=== PATIENT | female | born 1975 | race Caucasian/White ===

== ENCOUNTER 2016-11-20 21:31 | Emergency (ER) | payer MEDICAID, OTHER ==
[~2016-11-20] VITALS: Ht 152.4 cm; Wt 75.3 kg
[~2016-11-20 21:31] MED LIST: BACL10TA4 PO; GABA300C PO
[2016-11-20 21:36] VITALS: BP 110/65
[2016-11-21] MEDS: KETOROLAC 60 MG/2 ML VIAL IM ONE (00:03)
[2016-11-21 01:07] VITALS: BP 108/69
== END 2016-11-21 01:10 | disposition home or self-care (01) ==
LOC: MED 21:31
DX: M54.42 Lumbago with sciatica, left side (principal); N39.0 Urinary tract infection, site not specified; Z88.5 Allergy status to narcotic agent; Z88.6 Allergy status to analgesic agent
CPT/HCPCS: 81002; 81025; 96372; 99283; J1885

== ENCOUNTER 2020-03-25 13:11 | Emergency (ER) | payer OTHER ==
[~2020-03-25] VITALS: Ht 152.4 cm; Wt 79.4 kg
--- NOTE | 2020-03-25 13:14 | NUR ---
Patient ambulated to bed 3. RN evaluating patient at bedside.
[2020-03-25 13:15] VITALS: BP 143/83
--- NOTE | 2020-03-25 13:20 | NUR ---
PT C/O LAC ON LEFT GREAT TOE WITH THE WHOLE TOENAIL DETACHED S/P INJURIED BY A SHOPPING CART. MILD ACTIVE BUT CONTROLED BLEEDING NOTICED UPON TRIAGE. REPORTS 10/10 PAIN. NO DEFORMITY, DISCOLORATION, EDEMA, OR ERYTHEMA ON THE LEFT FOOT. REPORTS LAST TDAP WAS GIVEN 5 YEARS AGO. PT DENIES ANY FEVER, CP, SOB, OR COUGH AT THIS TIME; PATIENT STATES PAIN OF 10/10 AT THIS TIME; VSS; PATIENT POSITIONED FOR COMFORT; HOB ELEVATED; BEDRAILS UP X1; BED DOWN. ER MD MADE AWARE OF PT STATUS.
--- NOTE | 2020-03-25 13:25 | NUR ---
Dr. Melara is evaluating the patient at bedside.
[2020-03-25] MEDS: LIDOCAINE MPF 1% 10 MG/ML VIAL INJ ONE (14:05)
[2020-03-25 14:18] VITALS: BP 132/72
== END 2020-03-25 14:19 | disposition home or self-care (01) ==
LOC: MED 13:11
DX: S91.202A Unspecified open wound of left great toe with damage to nail, initial encounter (principal); V09.9XXA Pedestrian injured in unspecified transport accident, initial encounter; Y93.89 Activity, other specified; Y92.89 Other specified places as the place of occurrence of the external cause; Y99.8 Other external cause status
CPT/HCPCS: 11730; 99284; J2001

== ENCOUNTER 2020-09-23 20:15 | Emergency (ER) | payer OTHER ==
[~2020-09-23] VITALS: Ht 152.4 cm; Wt 79.4 kg
[2020-09-23 20:21] VITALS: BP 132/90
[2020-09-23 20:44] VITALS: BP 132/90
== END 2020-09-23 20:44 | disposition home or self-care (01) ==
LOC: MED 20:15
DX: H92.01 Otalgia, right ear (principal); E78.00 Pure hypercholesterolemia, unspecified; Z88.6 Allergy status to analgesic agent; Z88.5 Allergy status to narcotic agent; Z88.8 Allergy status to other drugs, medicaments and biological substances; Z98.890 Other specified postprocedural states; Z79.899 Other long term (current) drug therapy
CPT/HCPCS: 99282

== ENCOUNTER 2021-04-23 01:31 | Emergency (ER) | payer OTHER ==
[~2021-04-23] VITALS: Ht 154.9 cm; Wt 77.1 kg
--- NOTE | 2021-04-23 01:31 | NUR ---
PT JERAMIE ALS. TAKEN TO BED 9
--- NOTE | 2021-04-23 01:45 | NUR ---
46 Y/O FEMALE PT BIBA C/O DIARRHEA. PT STATES, "WE WENT CAMPING LAST N[place] AND ATE SOME PEARS WE PICKED TODAY, AND THEN STARTED TO HAVE SOME DIARRHEA, VERY WATERY STOOLS X 10 TODAY." PT WAS GIVEN 200CC NS AND IV ON THE LT HAND 20G FROM EMS. PT'S VITALS ARE STABLE. NKA PMH: UTI
[2021-04-23] MEDS ORDERED: KETOROLAC 15 MG/ML VIAL IVP ONE (02:05)
[2021-04-23] MEDS ORDERED: DICYCLOMINE HCL LIQUID 20 MG, ALUMINUM HYD/MAG/SIMETHICONE 30 ML, LIDOCAINE VISCOUS 2% ... PO ONE ×3 (02:05)
[2021-04-23] MEDS ORDERED: NACL 0.9% 1,000 ML IV ONE (02:05)
[2021-04-23 02:09] VITALS: BP 140/89
[2021-04-23 02:10] LABS: BASOPHILS % (AUTO) 0.2 % (0.0-2.0); EOSINOPHILS # (AUTO) 0.1 K/uL (0-0.4); EOSINOPHILS % (AUTO) 1.2 % (0.0-4.0); HEMATOCRIT 36.2 % (36-48); HEMOGLOBIN 11.7 g/dL (12.0-16.0); LYMPHOCYTES # (AUTO) 2.4 K/uL (2.5-16.5); LYMPHOCYTES % (AUTO) 24.1 % (20.5-51.1); MEAN CORPUSCULAR HEMOGLOBIN 25 pg (27-31); MEAN CORPUSCULAR HGB CONC 32 g/dL (33-37); MEAN CORPUSCULAR VOLUME 75.9 fL (80-94); MONOCYTES # (AUTO) 0.8 K/uL (0.8-1.0); MONOCYTES % (AUTO) 8.4 % (1.7-9.3); NEUTROPHILS # (AUTO) 6.5 K/uL (1.8-7.7); NEUTROPHILS % (AUTO) 66.1 % (42.2-75.2); PLATELET COUNT (AUTO) 337 K/uL (140-450); RED BLOOD CELL COUNT(AUTO) 4.76 MIL/uL (4.20-5.40); RED CELL DISTRIBUTION WIDTH 22.6 % (11.6-13.7); WHITE BLOOD COUNT (AUTO) 9.9 K/uL (4.8-10.8)
[2021-04-23] MEDS ORDERED: DICYCLOMINE HCL LIQUID 10 MG/5 ML UDC ONE (02:23)
[2021-04-23] MEDS ORDERED: ALUMINUM HYD/MAG/SIMETHICONE 30 ML UDC ONE (02:23)
[2021-04-23 02:30] LABS: ANION GAP 13.9 (8-16); CARBON DIOXIDE 26.7 mmol/L (21-32); CREATININE 0.8 mg/dL (0.6-1.3); POTASSIUM 3.6 mmol/L (3.5-5.1); TOTAL BILIRUBIN 0.3 mg/dL (0.0-1.0)
[2021-04-23 03:46] LABS: BILIRUBIN,URINE NEGATIVE (NEGATIVE); BLOOD, URINE TRACE-L (NEGATIVE); COLOR,URINE YELLOW (YELLOW); LEUKOCYTE ESTERASE ,URINE NEGATIVE (NEGATIVE); NITRITE, URINE NEGATIVE (NEGATIVE); UGLUCOSE NEGATIVE (NEGATIVE)
--- NOTE | 2021-04-23 03:48 | NUR ---
Dr. Quinones examining patient.
[2021-04-23] MEDS ORDERED: NITR100C7 PO (03:51)
[2021-04-23] MEDS ORDERED: SIME80CT27 PO (03:51)
[2021-04-23] MEDS ORDERED: BISM262C53 PO (03:51)
[2021-04-23 03:54] LABS: APPEARANCE,URINE CLEAR (CLEAR)
[2021-04-23 03:57] LABS: RBC,URINE 0-5 /HPF (0-5); WBC,URINE 0-5 /HPF (0-5)
[2021-04-23 03:59] LABS: HYALINE CASTS, URINE 0-2 /LPF (None Seen)
[2021-04-23 04:22] VITALS: BP 140/89
--- NOTE | 2021-04-23 04:22 | NUR ---
Patient discharged with v/s stable. Written and verbal after care instructions given and explained. Patient alert, oriented and verbalized understanding of instructions. Ambulatory with steady gait. All questions addressed prior to discharge. ID band removed. Patient advised to follow up with PMD. Rx of PEPTOBISMOL AND MACROBID given. Patient educated on indication of medication including possible reaction and side effects. Opportunity to ask questions provided and answered.
== END 2021-04-23 04:22 | disposition home or self-care (01) ==
LOC: MED 01:31
DX: N39.0 Urinary tract infection, site not specified (principal); R19.7 Diarrhea, unspecified; R10.84 Generalized abdominal pain; R14.0 Abdominal distension (gaseous); Z88.5 Allergy status to narcotic agent; Z88.6 Allergy status to analgesic agent; Z79.899 Other long term (current) drug therapy
CPT/HCPCS: 36415; 80053; 81001; 83690; 85025; 96361; 96374; 99283; J1885; J7030; 81002

== ENCOUNTER 2021-06-03 05:08 | Emergency (ER) | payer OTHER ==
[~2021-06-03] VITALS: Ht 152.4 cm; Wt 77.1 kg
[~2021-06-03 05:08] MED LIST changes: +BISM262C53 PO; +NITR100C7 PO; +SIME80CT27 PO
[2021-06-03 05:15] VITALS: BP 132/84
[2021-06-03] MEDS ORDERED: ACETAMINOPHEN EXTRA STRENGTH 500 MG TAB PO ONE (05:15)
[2021-06-03] MEDS ORDERED: KETOROLAC 30 MG/ML VIAL IM ONE (05:15)
--- NOTE | 2021-06-03 05:15 | NUR ---
TO BED AMBULATORY
--- NOTE | 2021-06-03 05:25 | NUR ---
RECEIVED IN BED 6 WITH C/O RIGHT KNEE PAIN. DENIES TRAUMA. 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
--- NOTE | 2021-06-03 05:29 | NUR ---
US AT BEDSIDE
--- NOTE | 2021-06-03 05:50 | NUR ---
PORTABLE X-RAY DONE
[2021-06-03 06:00] VITALS: BP 132/84
--- NOTE | 2021-06-03 06:00 | NUR ---
Patient discharged with v/s stable. Written and verbal after care instructions given and explained. Patient verbalized understanding. Ambulatory with steady gait. All questions addressed prior to discharge. Advised to follow up with PMD.
== END 2021-06-03 06:00 | disposition home or self-care (01) ==
LOC: MED 05:08
DX: M25.561 Pain in right knee (principal); Z88.5 Allergy status to narcotic agent; Z88.6 Allergy status to analgesic agent; Z79.899 Other long term (current) drug therapy
CPT/HCPCS: 73562; 93971; 96372; 99284; J1885; Q0092

== ENCOUNTER 2021-06-09 12:31 | Emergency (ER) | payer OTHER ==
[~2021-06-09] VITALS: Ht 152.4 cm; Wt 78.0 kg
[2021-06-09 12:37] VITALS: BP 148/94
--- NOTE | 2021-06-09 12:44 | NUR ---
MARTIN Paris is evaluating patient in triage room
--- NOTE | 2021-06-09 12:49 | NUR ---
Patient ambulated to bed 08 with steady/ even gait
--- NOTE | 2021-06-09 12:49 | NUR ---
46 y/o F BIB self from home c/o left palm pain x 4 days. Patient states 6/10 "hurts/constant," non-radiating pain. Tender to palpation. Pt states inflammation to left palm by 1st digit. Denies loss of sensation, numbness, tingling, injury, recent heavy lifting. Denies medications today. PMH: HLD Meds: Denies A: vicodin, tramadol, hydrocodone Sx: Denies
[2021-06-09] MEDS ORDERED: IBUPROFEN 600 MG TAB PO ONE (12:50)
[2021-06-09] MEDS ORDERED: IBUP-2213 PO (12:58)
--- NOTE | 2021-06-09 13:06 | NUR ---
Thumb spica applied to L arm; patient tolerated well. CMS WNL before and after application. Pt successfully verbalized understanding to adjust straps accordingly for proper circulation.
== END 2021-06-09 13:11 | disposition home or self-care (01) ==
LOC: MED 12:31
DX: M79.642 Pain in left hand (principal); R03.0 Elevated blood-pressure reading, without diagnosis of hypertension; Z79.899 Other long term (current) drug therapy; Z88.5 Allergy status to narcotic agent; Z88.8 Allergy status to other drugs, medicaments and biological substances; Z88.6 Allergy status to analgesic agent
CPT/HCPCS: 99283

== ENCOUNTER 2023-03-16 00:39 | Emergency (ER) | payer OTHER ==
[~2023-03-16] VITALS: Ht 172.7 cm; Wt 78.9 kg
[~2023-03-16 00:39] MED LIST changes: +IBUP-2213 PO
[2023-03-16 00:40] VITALS: BP 145/94; PULSE 66; RESP 16; TEMP 97; O2SAT 99
--- NOTE | 2023-03-16 00:51 | NUR ---
ambulate to lobby
--- NOTE | 2023-03-16 01:05 | NUR ---
to bed 12
[2023-03-16] MEDS ORDERED: KETOROLAC 30 MG/ML VIAL IVP ONE (01:20)
[2023-03-16] MEDS ORDERED: NACL 0.9% 1,000 ML IV ONE (01:20)
[2023-03-16] MEDS ORDERED: cefTRIAXone 1,000 MG VIAL ONE (01:52)
[2023-03-16 01:53] LABS: BASOPHILS % (AUTO) 0.4 % (0.0-2.0); EOSINOPHILS # (AUTO) 0.1 K/uL (0-0.4); EOSINOPHILS % (AUTO) 1.3 % (0.0-4.0); HEMATOCRIT 36.4 % (36-48); HEMOGLOBIN 12.1 g/dL (12.0-16.0); LYMPHOCYTES # (AUTO) 2.7 K/uL (2.5-16.5); LYMPHOCYTES % (AUTO) 27.2 % (20.5-51.1); MEAN CORPUSCULAR HEMOGLOBIN 28 pg (27-31); MEAN CORPUSCULAR HGB CONC 33 g/dL (33-37); MEAN CORPUSCULAR VOLUME 84.6 fL (80-94); MONOCYTES # (AUTO) 0.8 K/uL (0.8-1.0); MONOCYTES % (AUTO) 7.9 % (1.7-9.3); NEUTROPHILS # (AUTO) 6.2 K/uL (1.8-7.7); NEUTROPHILS % (AUTO) 63.2 % (42.2-75.2); PLATELET COUNT (AUTO) 302 K/uL (140-450); RED BLOOD CELL COUNT(AUTO) 4.31 MIL/uL (4.20-5.40); RED CELL DISTRIBUTION WIDTH 14.7 % (11.6-13.7); WHITE BLOOD COUNT (AUTO) 9.9 K/uL (4.8-10.8)
[2023-03-16 02:08] LABS: ANION GAP 12.9 (8-16); CARBON DIOXIDE 28.5 mmol/L (21-32); CREATININE 0.7 mg/dL (0.6-1.3); POTASSIUM 3.4 mmol/L (3.5-5.1); TOTAL BILIRUBIN 0.5 mg/dL (0.0-1.0)
[2023-03-16 02:19] LABS: BILIRUBIN,URINE NEGATIVE (NEGATIVE); BLOOD, URINE 3+ (NEGATIVE); LEUKOCYTE ESTERASE ,URINE 3+ (NEGATIVE); NITRITE, URINE POSITIVE (NEGATIVE); UGLUCOSE NEGATIVE (NEGATIVE)
[2023-03-16 02:30] LABS: APPEARANCE,URINE SLIGHTLY CLOUDY (CLEAR); COLOR,URINE DARK YELLOW (YELLOW)
[2023-03-16 02:31] LABS: RBC,URINE 11-20 (MOD) /HPF (0-5)
[2023-03-16] MEDS ORDERED: CIPR500T4 PO (03:05)
[2023-03-16] MEDS ORDERED: ESOM40EC PO (03:11)
[2023-03-16 03:17] VITALS: BP 145/94; PULSE 66; RESP 16; TEMP 97; O2SAT 99
--- NOTE | 2023-03-16 03:17 | NUR ---
Patient discharged. Written and verbal after care instructions given and explained. Patient alert, oriented and verbalized understanding of instructions. Ambulatory with steady gait. All questions addressed prior to discharge. ID band removed. Patient advised to follow up with PMD. Rx of Ciprofloxacin and Nexium given. Patient educated on indication of medication including possible reaction and side effects. Opportunity to ask questions provided and answered.
== END 2023-03-16 03:17 | disposition home or self-care (01) ==
LOC: MED 00:39
DX: N39.0 Urinary tract infection, site not specified (principal); Z88.5 Allergy status to narcotic agent; Z79.899 Other long term (current) drug therapy
CPT/HCPCS: 36415; 80053; 81001; 85025; 87040; 87086; 96365; 96375; 99284; J0696; J1885; J7030

== ENCOUNTER 2023-03-18 07:00 | Emergency (ER) | payer OTHER ==
[~2023-03-18] VITALS: Ht 152.4 cm; Wt 78.9 kg
[~2023-03-18 07:00] MED LIST changes: +CIPR500T4 PO; +ESOM40EC PO
[2023-03-18 07:06] VITALS: BP 151/80; PULSE 75; RESP 20; TEMP 98.2; O2SAT 98
[2023-03-18] MEDS ORDERED: ACETAMINOPHEN 325 MG TAB PO ONE (07:35)
[2023-03-18] MEDS ORDERED: ACET-10509 PO (07:37)
[2023-03-18] MEDS ORDERED: NAPR-1704 PO (07:37)
--- NOTE | 2023-03-18 07:41 | NUR ---
48 Y/O F PATIENT PRESENTS TO ED WITH VAGINAL BLADDER PAINM NON RADIATING. PT STATES HER SYMPTOMS ARE URGENGENCY AND DRIBBILING. DENIES N/V/D; SKIN IS PINK/WARM/DRY; AAOX4 WITH EVEN AND STEADY GAIT; LUNGS CLEAR BL; HR EVEN AND REGULAR; PT DENIES ANY FEVER, CP, SOB, OR COUGH AT THIS TIME; PATIENT STATES PAIN OF 8/10 AT THIS TIME; VSS; PATIENT POSITIONED FOR COMFORT; HOB ELEVATED; CALL LIGHT WITH IN REACH BEDRAILS UP X2; BED DOWN. ER MD MADE AWARE OF PT STATUS. PMHX NONE ALLERGIES VICODIN TRAMADOL
[2023-03-18 07:47] VITALS: O2SAT 98
--- NOTE | 2023-03-18 07:53 | NUR ---
PT HAS BEEN MEDICATED PER PROVIDERS ORDERS
[2023-03-18 08:01] VITALS: BP 149/88; PULSE 75; RESP 16; TEMP 98.2; O2SAT 77
--- NOTE | 2023-03-18 08:04 | NUR ---
PT STATES SHE IS FEELING BETTER PAIN HAS REDUCED TO 3 AND WILL FOLLOW UP WITH HER PRIMARAY CARE PHYSICAN.
--- NOTE | 2023-03-18 09:01 | NUR ---
The patient's care was reviewed and supervised by JUAN MINOR RN.
[2023-03-18] MEDS ORDERED: NITR100C7 PO (11:23)
== END 2023-03-18 09:01 | disposition home or self-care (01) ==
LOC: MED 07:00
DX: N39.0 Urinary tract infection, site not specified (principal); Z88.5 Allergy status to narcotic agent; Z88.6 Allergy status to analgesic agent; Z88.8 Allergy status to other drugs, medicaments and biological substances; Z79.899 Other long term (current) drug therapy
CPT/HCPCS: 81025; 99282

== ENCOUNTER 2023-06-02 12:30 | Emergency (ER) | payer OTHER ==
[~2023-06-02] VITALS: Ht 152.4 cm; Wt 81.2 kg
[~2023-06-02 12:30] MED LIST changes: +ACET-10509 PO; +NAPR-1704 PO
[2023-06-02 12:49] VITALS: BP 162/80; PULSE 62; RESP 16; TEMP 97.2; O2SAT 100
[2023-06-02] MEDS ORDERED: KETOROLAC 60 MG/2 ML VIAL IM ONE (13:20)
[2023-06-02] MEDS ORDERED: IBUP-2213 PO (13:32)
[2023-06-02 13:46] VITALS: BP 155/78; PULSE 62; RESP 16; TEMP 97.2; O2SAT 100
== END 2023-06-02 13:45 | disposition home or self-care (01) ==
LOC: MED 12:30
DX: R51.9 Headache, unspecified (principal); I10 Essential (primary) hypertension; Z88.8 Allergy status to other drugs, medicaments and biological substances; Z88.5 Allergy status to narcotic agent; Z79.899 Other long term (current) drug therapy
CPT/HCPCS: 96372; 99283; J1885

== ENCOUNTER 2023-08-19 04:10 | Emergency (ER) | payer OTHER ==
[~2023-08-19] VITALS: Ht 152.4 cm; Wt 72.6 kg
[2023-08-19 04:22] VITALS: BP 143/86; PULSE 108; RESP 14; TEMP 99.7; O2SAT 95
[2023-08-19] MEDS ORDERED: NACL 0.9% 1,000 ML IV ONE (04:50)
[2023-08-19] MEDS ORDERED: ONDANSETRON 4 MG/2 ML VIAL IVP ONE (04:50)
[2023-08-19] MEDS ORDERED: KETOROLAC 30 MG/ML VIAL IVP ONE (04:50)
[2023-08-19 05:42] LABS: FLU A ANTIGEN negative (NEGATIVE); FLU B ANTIGEN NEGATIVE (NEGATIVE)
[2023-08-19] MEDS ORDERED: NAPR-54 PO (06:18)
[2023-08-19] MEDS ORDERED: MAG-27 PO (06:18)
[2023-08-19] MEDS ORDERED: ONDA-188 PO (06:18)
[2023-08-19 06:49] VITALS: BP 135/90; PULSE 108; RESP 14; TEMP 99.7; O2SAT 95
== END 2023-08-19 06:49 | disposition home or self-care (01) ==
LOC: MED 04:10
DX: U07.1 COVID-19 (principal); Z88.5 Allergy status to narcotic agent; Z88.8 Allergy status to other drugs, medicaments and biological substances; Z79.899 Other long term (current) drug therapy
CPT/HCPCS: 87426; 87804; 96361; 96374; 96375; 99284; J1885; J2405; J7030

== ENCOUNTER 2024-03-02 07:43 | Emergency (ER) | payer OTHER ==
[~2024-03-02] VITALS: Ht 157.5 cm; Wt 76.7 kg
[~2024-03-02 07:43] MED LIST changes: +MAG-27 PO; +NAPR-337 PO; +ONDA-188 PO
[2024-03-02 07:59] VITALS: BP 148/80; PULSE 74; RESP 18; TEMP 97.7; O2SAT 100
[2024-03-02] MEDS ORDERED: PHEN-1877 PO (08:30)
[2024-03-02] MEDS ORDERED: CIPR500T4 PO (08:30)
[2024-03-02 08:35] VITALS: BP 132/71; PULSE 60; RESP 18; TEMP 36.50292; O2SAT 100
== END 2024-03-02 08:35 | disposition home or self-care (01) ==
LOC: MED 07:43
DX: N39.0 Urinary tract infection, site not specified (principal); Z79.899 Other long term (current) drug therapy; Z88.5 Allergy status to narcotic agent; Z88.6 Allergy status to analgesic agent
CPT/HCPCS: 81002; 81025; 87086; 87186; 99283